=== PATIENT | male | born 1980 | race African-American/Black ===

== ENCOUNTER 2019-02-13 13:19 | Emergency (ER) | payer SELFPAY ==
[~2019-02-13] VITALS: Ht 188 cm; Wt 89.4 kg
[2019-02-13] MEDS ORDERED: KETOROLAC TROMETHAMINE INJ 30 MG/ML VIAL ONE (15:09)
[2019-02-13] MEDS: KETOROLAC TROMETHAMINE INJ 60 MG/2 ML VIAL IM ONE (15:15)
[2019-02-13 16:23] VITALS: BP 118/75
== END 2019-02-13 16:24 | disposition home or self-care (01) ==
LOC: ER 13:23
DX: S16.1XXA Strain of muscle, fascia and tendon at neck level, initial encounter (principal); S80.01XA Contusion of right knee, initial encounter; F17.200 Nicotine dependence, unspecified, uncomplicated; Z98.890 Other specified postprocedural states; Z60.2 Problems related to living alone; V49.49XA Driver injured in collision with other motor vehicles in traffic accident, initial encounter; Y93.89 Activity, other specified; Y92.413 State road as the place of occurrence of the external cause; Y99.8 Other external cause status
CPT/HCPCS: 73564-TC; J1885

== ENCOUNTER 2019-02-14 16:52 | Emergency (ER) | payer SELFPAY ==
[~2019-02-14] VITALS: Ht 182.9 cm; Wt 75.7 kg
[2019-02-14 17:03] VITALS: BP 121/75
== END 2019-02-14 17:43 | disposition home or self-care (01) ==
LOC: ER 16:52
DX: M25.561 Pain in right knee (principal); F10.10 Alcohol abuse, uncomplicated; F17.200 Nicotine dependence, unspecified, uncomplicated; Y90.9 Presence of alcohol in blood, level not specified; Z98.890 Other specified postprocedural states; Z60.2 Problems related to living alone